=== PATIENT | female | born 1925 | race Caucasian/White ===

== ENCOUNTER → 2017-05-14 | Outpatient (CLI) | payer MEDICARE ==
[~2017-05-14] MED LIST: ALLOPURINOL100 MG PO; AMIODARONE HCL200 MG PO; AMLODIPINE BESYL5 MG PO; ANASTROZOLE1 MG PO; BENICAR20 MG PO; FUROSEMIDE40 MG PO; LOSARTAN POTAS100 MG PO; METOPROLOL SUCC25 MG PO; METOPROLOL TART25 MG PO
== END ==
LOC: RAD 13:36
PROVIDERS: ATTEND Family Medicine
DX: M79.605 Pain in left leg (principal); M79.604 Pain in right leg; I73.9 Peripheral vascular disease, unspecified; I99.9 Unspecified disorder of circulatory system
CPT/HCPCS: 93925; 93970

== ENCOUNTER → 2017-06-04 | Outpatient (CLI) | payer MEDICARE ==
--- NOTE | 2017-06-05 16:00 | Diagnostic Imaging Report ---
#[id number] - MGSCRRT #UNILATERAL RIGHT DIGITAL SCREENING MAMMOGRAM WITH CAD: 06/04/2017 CLINICAL: Routine screening. Comparison is made to exams dated: 06/05/2016 mammogram and 05/17/2015 mammogram - [facility] [place]. Current study contains 2 films. There are scattered fibroglandular elements in the right breast. Current study was also evaluated with a Computer Aided Detection (CAD) system. There are benign vascular calcifications and calcifications in the right breast. There also is a biopsy clip in the right breast. There are mole markers on the right breast. No significant masses, calcifications, or other findings are seen in the breast. There has been no significant interval change. IMPRESSION: BENIGN There is no mammographic evidence of malignancy. A 1 year screening mammogram is recommended. The patient will be notified by letter of the results. James figueroa/onesimo:06/05/2017 13:20:58 Porcelain Enamel Sprayer: Jessica HENDERSON(R)(M), [facility] [place] letter sent: Compared to Prior B9 Mammogram BI-RADS: 2 Benign
== END ==
LOC: MAMMO 09:01
PROVIDERS: ATTEND Family Medicine
DX: Z12.31 Encounter for screening mammogram for malignant neoplasm of breast (principal)